=== PATIENT | male | born 1985 | race African-American/Black ===

== ENCOUNTER 2018-04-09 07:13 | Emergency (ER) | payer OTHER ==
[~2018-04-09] VITALS: Ht 177.8 cm; Wt 73.0 kg
[2018-04-09 07:22] VITALS: BP 136/94
== END 2018-04-09 07:47 | disposition home or self-care (01) ==
LOC: ER 07:13
DX: K64.9 Unspecified hemorrhoids (principal); K62.5 Hemorrhage of anus and rectum; Z91.010 Allergy to peanuts; Z90.89 Acquired absence of other organs
CPT/HCPCS: 99283